=== PATIENT | female | born 1985 | race African-American/Black ===

== ENCOUNTER 2021-01-03 08:41 | Outpatient (CLI) | payer BC, SELFPAY ==
--- NOTE | ~2021-01-03 | MM_ITS ---
EXAMINATION: MM diagnostic shane RT w padmini HISTORY: Palpable right breast abnormality. TECHNIQUE: Additional 3-D tomosynthesis images of the right breast were performed and synthetic 2-D i mages were generated. CAD analysis was submitted and interpreted. COMPARISON: No prior studies for comparison. BREAST PARENCHYMAL COMPOSITION: BREAST PARENCHYMAL COMPOSITION: There are scattered areas of fibroglandular density. FINDINGS: There are no suspicious masses, calcifications or architectural distortion to suggest malig ryley. Specifically in the area of palpable concern there is no definite mass. There are benign appea ring axillary lymph nodes. IMPRESSION: 1. No mammographic evidence for malignancy in the right breast. No 2. Recommend targeted right breast ultrasound for complete evaluation of palpable breast abnormality. BI-RADS Category 0: Incomplete: Needs additional imaging evaluation. Reviewed, dictated and finalized at location A. IMPRESSION: 1. No mammographic evidence for malignancy in the right breast. No 2. Recommend targeted right breast ultrasound for complete evaluation of palpab le breast abnormality. BI-RADS Category 0: Incomplete: Needs additional imaging evaluation.
== END 2021-01-03 08:42 | disposition home or self-care (01) ==
PROVIDERS: PCP Internal Medicine; Visit Provider Student in an Organized Health Care Education/Training Program
DX: N64.59 Other signs and symptoms in breast (principal); R92.8 Other abnormal and inconclusive findings on diagnostic imaging of breast
CPT/HCPCS: 77061; 77065; G0279

== ENCOUNTER 2021-01-16 09:52 | Outpatient (CLI) | payer BC, SELFPAY ==
--- NOTE | ~2021-01-16 | US_ITS ---
US breast RT limited 01/16/2021 10:26 Indication: Skin changes overlying the right axilla. Procedure: High-resolution ultrasound of the right axilla Comparison: Mammogram dated 01/03/2021 Findings: There is normal heterogeneous echotexture in the area of skin change in the right axilla wi thout discrete mass. There is a 1 cm lymph node corresponding to the lymph node seen on mammogram in the nearby axilla. No sonographic evidence for malignancy. Impression: 1: No sonographic evidence for malignancy in the right axilla. Routine yearly screening mammogram and regular clinical breast examination are recommended. BI-RADS CATEGORY 2 - BENIGN FINDINGS Reviewed, dictated and finalized at location A. Impression: 1: No sonographic evidence for malignancy in the right axilla. Routine yearly screening mammogram and regular clinical breast examination are recommended. BI-RADS CATEGORY 2 - BENIGN FINDINGS
== END 2021-01-16 09:53 | disposition home or self-care (01) ==
LOC: ANHIMG 09:54
PROVIDERS: PCP Internal Medicine; Visit Provider Student in an Organized Health Care Education/Training Program
DX: N64.89 Other specified disorders of breast (principal)
CPT/HCPCS: 76642

== ENCOUNTER 2021-03-05 15:41 | Outpatient (CLI) | payer BC, SELFPAY ==
--- NOTE | ~2021-03-05 | US_ITS ---
EXAMINATION: US soft tissue UE RT EXAM DATE: 03/05/2021 16:24 INDICATION: R22.9 - Localized swelling, mass and lump, unspecified lump. TECHNIQUE: Multiple grayscale and Doppler images of the symptomatic right upper extremity region were obtained (by a technologist who performed the scan) and subsequently reviewed. There is no prior st udy for comparison. FINDINGS: Scanning in location of patient's right arm lump demonstrated a mobile region isoechoic to fat, possi zoe an unencapsulated lipoma measuring about 1 x 2 cm. The underlying musculature and overlying skin are unremarkable. IMPRESSION: Possible unencapsulated lipoma. Reviewed, dictated and finalized at location A.
== END 2021-03-05 15:42 | disposition home or self-care (01) ==
PROVIDERS: PCP Internal Medicine; Visit Provider Nurse Practitioner
DX: R22.9 Localized swelling, mass and lump, unspecified (principal)
CPT/HCPCS: 76882

== ENCOUNTER 2021-06-04 11:52 | Emergency (ER) | payer BC, SELFPAY ==
--- NOTE | 2021-06-04 11:56 | ED.LOWEXIN ---
HPI - Extremity Injury (Lower) General Chief Complaint: Extremity Problem,Nontraumatic Stated Complaint: lt lower leg pain Time Seen by Provider: 06/04/21 11:56 Source: patient and RN notes reviewed History of Present Illness HPI Narrative: Patient is a 35-year-old female who presents the urgent care with complaints of left lower leg pain in the frankel area. 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 Patient states that she has made a point to get up and walk around several times throughout the day to help with the restless legs. Patient states that she is also seeing a chiropractor recently and notes that her right hip is out of alignment . Patient states that she suffers from left sciatica as well as chronic low back pain. Patient states that the left frankel the pain is a new symptom that is started approximately 1 week ago and worsened with a little bit of tingling and discomfort in the last 24 hours. Patient denies of any shortness of breath or chest pain. Denies of any history of DVT. No other acute complaints. No acute distress noted. Patient aware of the plan of care. Some parts of this dictation were generated by voice recognition software and may contain typographical and/or grammatical inaccuracies. Related Data Home Medications Medication Instructions Recorded Confirmed cetirizine 10 mg tablet 10 mg PO DAILY 06/08/20 fluticasone propionate 50 1 spray INTRANASAL DAILY 06/08/20 mcg/actuation nasal spray,suspension Allergies Allergy/AdvReac Type Severity Reaction Status Date / Time No Known Allergies Allergy Verified 06/08/20 11:39 Review of Systems Review of Systems: CONSTITUTIONAL: Denies fever, chills, or sweats. EYES: Denies visual changes, redness, or discharge. ENT: Denies rhinorrhea, congestion, sore throat, or otalgia. CARDIOVASCULAR: Denies chest pain, palpitations, or edema. RESPIRATORY: Denies cough or dyspnea. GASTROINTESTINAL: Denies abdominal pain, nausea, vomiting, or diarrhea. GENITOURINARY: Denies dysuria or hematuria. SKIN: Denies rash or itching. MUSCULOSKELETAL: Reports of left lower leg/frankel pains NEUROLOGIC: Denies headache, numbness, or weakness. All other systems reviewed are negative, except as documented in HPI. [facility] Family History Family History Grandparent Diabetes mellitus Family history of congestive heart failure Mother Family history of arthritis Father Family history of kidney disease Social History Social History Smoking status: Never smoker Alcohol intake: current Comments At the time of my signature, I reviewed and agree with the nursing past medical, surgical, social, and family history. There is no relevant family history pertinent to the patient complaint. Exam Narrative: GENERAL: This is a well-nourished, well-developed patient, in no apparent distress. HEAD: normocephalic, atraumatic. EYES: PERRL. Sclera clear/white. Vision is grossly intact. EARS: External ears normal NOSE: External nose normal with no obvious nasal discharge, nares without redness, no rhinorrhea. THROAT: Mucous membranes moist NECK: Neck supple CARDIOVASCULAR: Regular rate and rhythm without murmurs, gallops, or rubs. RESPIRATORY: Clear to auscultation. Breath sounds equal bilaterally. No wheezes, rales, or rhonchi. SKIN: warm, intact with no suspicious lesions or rash, good texture and turgor. NEURO: awake, alert, and oriented to person, place and time. There were no obvious focal neurologic abnormalities. EXTREMITIES: Positive strong left pedal pulse with capillary refill less than 2 seconds. Negative left Homans' sign. No obvious deformity, erythema, edema or ecchymosis noted to the left lower extremity. Range of motion to left lower extremity within normal limits. Course Vital Signs Vital signs:
[2021-06-04 11:58] VITALS: BP 154/91; PULSE 68; RESP 16; TEMP 36.6; O2SAT 98
== END 2021-06-04 12:23 | disposition home or self-care (01) ==
PROVIDERS: Emergency Provider Nurse Practitioner Family; PCP Internal Medicine
DX: M79.662 Pain in left lower leg (principal)
CPT/HCPCS: 99213; G0463

== ENCOUNTER 2021-08-20 13:53 | Outpatient (CLI) | payer BC, SELFPAY ==
--- NOTE | ~2021-08-20 | MMUS_ITS ---
EXAMINATION: MM diagnostic shane BI w padmini, US breast LT limited HISTORY: Palpable lump in the upper outer quadrant of the left breast TECHNIQUE: Craniocaudal, mediolateral, and mediolateral oblique 3-D tomosynthesis images of the breas ts were performed and synthetic 2-D images were generated. CAD analysis was submitted and interpreted . High resolution limited left breast ultrasound was performed. COMPARISON: 01/03/2021 BREAST PARENCHYMAL COMPOSITION: The breasts are almost entirely fatty. FINDINGS: MAMMOGRAPHIC FINDINGS: There is no evidence of suspicious mass, calcification, or architectural distortion in either breast to suggest malignancy. There has been no suspicious interval change. No suspicious mammographic wendy elate is identified for the reported palpable abnormality of the left breast. ULTRASOUND: There are normal-appearing lymph nodes in the left axilla. No suspicious cystic or solid mass is iden tified correlate with reported palpable abnormality of concern. IMPRESSION: 1. No specific mammographic or sonographic correlate is identified for the reported palpable abnormal ity of concern. Further evaluation at this time should be based on clinical assessment. Continued fol low-up physical examination is recommended. 2. Recommend routine screening mammography beginning at age 40. BI-RADS Category 1: Negative Reviewed, dictated and finalized at location A. [facility] CONS[employer] IMPRESSION: 1. No specific mammographic or sonographic correlate is identified for the repo rted palpable abnormality of concern. Further evaluation at this time should be based on clinical assessment. Continued follow-up physical examination is [place] mmended. 2. Recommend routine screening mammography beginning at age 40. BI-RADS Category 1: Negative
== END 2021-08-20 13:54 | disposition home or self-care (01) ==
LOC: ANHIMG 13:58
PROVIDERS: PCP Internal Medicine; Visit Provider Obstetrics & Gynecology
DX: R92.8 Other abnormal and inconclusive findings on diagnostic imaging of breast (principal)
CPT/HCPCS: 76642; 77062; 77066; G0279

== ENCOUNTER 2021-11-05 17:21 | Emergency (ER) | payer BC, SELFPAY ==
[2021-11-05 17:24] VITALS: BP 151/109; PULSE 93; RESP 16; TEMP 36.6; O2SAT 98
[2021-11-05 17:31] VITALS: BP 148/103
--- NOTE | 2021-11-05 17:56 | ED.URI ---
HPI - URI/Sore Throat General Chief Complaint: Upper Respiratory Infection Stated Complaint: COUGH/SOB/FEVER/BODY ACHES Time Seen by Provider: 11/05/21 17:45 Source: patient Mode of arrival: ambulatory Limitations: no limitations History of Present Illness HPI Narrative: Ms. Guzman is a 35-year-old female patient presenting to the clinic today with complaints of cough, shortness of breath, fever, body aches, and sore throat x1 to 2 days. Feels as though her throat is tight. Has nonproductive cough. No known exposure to anyone with Covid or influenza. She does recycle worker. She reports a personal history of chronic allergic rhinitis/postnasal drip. She has been taking Flonase and Zyrtec for this but this does not seem to be helping. MD elicited complaint: fever, cough, sore throat, rhinorrhea, nasal congestion, sinus pain and other (Body aches) Related Data Allergies Allergy/AdvReac Type Severity Reaction Status Date / Time No Known Allergies Allergy Verified 06/08/20 11:39 Review of Systems Review of Systems: Pertinent positives per HPI. Patient denies any rash, headache, visual changes, dizziness, chest pain, palpitations, nausea, vomiting, diarrhea, constipation, abdominal pain, or any urinary issues. [facility] Past Medical History Medical History Depression with anxiety Family History Family History Grandparent Diabetes mellitus Family history of congestive heart failure Mother Family history of arthritis Father Family history of kidney disease Social History Social History Smoking status: Never smoker Alcohol intake: current Alcohol use details: less than 1 drink a week Substance use type: marijuana Other substance usage details: occasionally Comments At the time of my signature, I reviewed and agree with the nursing past medical, surgical, social, and family history. There is no relevant family history pertinent to the patient complaint. Exam Narrative: General: Well-developed, morbidly obese, in no apparent distress Head: Normocephalic, atraumatic Eyes: Pupils equally round and reactive to light bilaterally, EOM intact, sclera and conjunctive clear, no discharge, lids normal Ears: TMs intact and clear, ear canals clear, no drainage, grossly hearing normal. Nose: Nares patent, no discharge, moderate inflammation to the anterior and posterior turbinates, sinus tenderness over the maxillary and frontal sinuses Mouth: Oral pharynx without lesions or masses, good dentition, MMM. Postnasal drip Neck: Supple, trachea midline, no enlargement of anterior or posterior cervical nodes, no thyroid masses or goiter palpable. Cardio: Regular rate and rhythm, s1 and s2 normal, no murmur appreciated. Resp: Clear to auscultation bilaterally, no rhonchi, rales, wheezing or rubs Course Course Emergency Course: Portions of this record may have been created with voice recognition software. Level of Care: Express Care Visit Vital Signs Vital signs: Vital Signs Temperature 36.6 C 11/05/21 17:24 Pulse Rate 93 11/05/21 17:24 Respiratory Rate 16 11/05/21 17:24 Blood Pressure 151/109 H 11/05/21 17:24 Pulse Oximetry 98 11/05/21 17:24 Temperature 36.6 C 11/05/21 17:24 Pulse Rate 93 11/05/21 17:24 Respiratory Rate 16 11/05/21 17:24 Blood Pressure 148/103 H 11/05/21 17:31 Pulse Oximetry 98 11/05/21 17:24 Vital signs reviewed MDM - URI/Sore Throat MDM Narrative Medical decision making narrative: At the time of visit patient patient appears mildly ill sitting in exam chair. No fever in the clinic today. Blood pressures are elevated however we do not have a correct size blood pressure cuff to appropriately check her blood pressure. Discussed high blood pressure with patient and she will follow u
== END 2021-11-05 18:13 | disposition home or self-care (01) ==
PROVIDERS: Emergency Provider Nurse Practitioner Family; PCP Internal Medicine
DX: J06.9 Acute upper respiratory infection, unspecified (principal); R09.82 Postnasal drip; Z20.822 Contact with and (suspected) exposure to COVID-19
CPT/HCPCS: 87081; 87426; 87804; 87880; 99213; C9803; G0463

== ENCOUNTER 2022-10-15 08:52 | Emergency (ER) | payer BC, SELFPAY ==
[2022-10-15 09:05] VITALS: BP 164/104; PULSE 77; RESP 16; TEMP 36.2; O2SAT 100
[2022-10-15 09:10] VITALS: BP 151/73; PULSE 75
--- NOTE | 2022-10-15 09:10 | ED.URI ---
HPI - URI/Sore Throat General Chief Complaint: Upper Respiratory Infection Stated Complaint: SORE THROAT/CONGETION/STREP EXPOSURE Time Seen by Provider: 10/15/22 09:10 Source: patient Mode of arrival: ambulatory Limitations: no limitations History of Present Illness HPI Narrative: patient is a 36-year-old female presenting with congestion, sore throat, and cough since yesterday. Daughter was diagnosed with strep. Patient has been taking TheraFlu with mild relief. denies any fever. Related Data Allergies Allergy/AdvReac Type Severity Reaction Status Date / Time No Known Allergies Allergy Verified 10/15/22 09:03 Review of Systems Review of Systems: CONSTITUTIONAL: Denies malaise, chills, sweats, or fever.? EYES: Denies visual changes, redness, or discharge.? ENT: Reports rhinorrhea, congestion, sinus pain, and sore throat.? CARDIOVASCULAR: Denies chest pain, palpitations, or edema.? RESPIRATORY: Reports cough.? Denies dyspnea.? GASTROINTESTINAL: Denies abdominal pain, nausea, vomiting, diarrhea? SKIN: Denies rash or itching.? MUSCULOSKELETAL: Denies myalgia.? NEUROLOGIC: Denies headache All systems reviewed & are unremarkable except as noted in HPI and below PMFSH Past Medical History Medical History Depression with anxiety Family History Family History Grandparent Diabetes mellitus Family history of congestive heart failure Mother Family history of arthritis Father Family history of kidney disease Social History Social History Smoking status: Never smoker Alcohol intake: current Alcohol use details: less than 1 drink a week Substance use type: marijuana Other substance usage details: occasionally Comments At time of signature, agree with nursing past medical, surgical, social and family history. There is no relevant family history pertinent to the presenting complaint? Exam Narrative: GENERAL: Well-appearing, well-nourished, and in no acute distress.? HEAD: Normocephalic, atraumatic.? EYES: PERRLA, conjunctivae clear, and EOMI. No nystagmus.? ENT: Nares clear, turbinates pink, no rhinorrhea or epistaxis. Mucous membranes moist. TM pearly garcia with sharp light reflex bilaterally; no tragal tenderness. Oropharynx with erythema, without lesions. Tonsils 1+ enlarged and without exudate.? NECK: Supple. No lymphadenopathy. CHEST: No respiratory distress. Clear to auscultation.? No bony deformities, no asymmetry. Speaks in full sentences.? HEART: Regular rate and rhythm. No murmur heard. ? ABDOMEN: Soft, nontender, nondistended EXTREMITIES: Normal range of motion. No edema. ? SKIN: Warm, dry, no rash.? NEURO: Alert and oriented x3. No focal deficits. PSYCH: Normal mood and affect? Course Course Emergency Course: Patient is aware of diagnosis, understands and agrees to treatment plan.? Anticipatory guidance given.? Patient agrees to follow-up as directed and is aware of reasons to seek care at the emergency department.? Portions of this record may have been created with voice recognition software? Level of Care: Express Care Visit Vital Signs Vital signs: Vital Signs Temperature 36.2 C L 10/15/22 09:05 Pulse Rate 77 10/15/22 09:05 Respiratory Rate 16 10/15/22 09:05 Blood Pressure 164/104 H 10/15/22 09:05 Pulse Oximetry 100 10/15/22 09:05 Temperature 36.2 C L 10/15/22 09:05 Pulse Rate 77 10/15/22 09:05 Respiratory Rate 16 10/15/22 09:05 Blood Pressure 164/104 H 10/15/22 09:05 Pulse Oximetry 100 10/15/22 09:05 Reviewed MDM - URI/Sore Throat MDM Narrative Medical decision making narrative: Differential diagnosis considered: Workman virus, strep pharyngitis, allergic rhinitis, upper respiratory tract infection, sinusitis, rhinosinusitis, nasopharyngitis. viral pharyngitis, otitis media, otitis externa
== END 2022-10-15 09:37 | disposition home or self-care (01) ==
PROVIDERS: Emergency Provider Nurse Practitioner Family; PCP Internal Medicine
DX: J02.0 Streptococcal pharyngitis (principal)
CPT/HCPCS: 87880; 99213; G0463

== ENCOUNTER 2024-11-24 01:52 | Day surgery (SDC) | payer BC, SELFPAY ==
[2024-11-02 13:38] VITALS: BMI 48.1
[2024-11-15 14:37] VITALS: BMI 48.1
--- OUTSIDE RECORDS SUMMARY | 2024-11-24 01:54 | XMS_ITS | Clinical Summary ---
Author Organization [facility] [employer] Address [address] [place] [address] Care Team Providers Care Core Shaper Sides Name Role Phone Unavailable Primary Care Provider Unavailabl e Source Comments [facility],non-owned Affiliates and Associated Physician Practices is amultiple site organization consisting of ambulatory clinics and hospital sitesin [place], [place], [place] and [place]. This disclosure is being madepursuant to the Care Everywhere program and may not contain all information available regarding this patient. Last updated [email or web address] Allergies No known active allergies Medications * Be aware that medications may not be up to date on this document. Alwaysverify current medications with the patient. Medication Sig Dispensed Refills Start Date End Date Status Cetirizine HCl (ZYRTEC PO) Active Etonogestrel-Ethinyl Estradiol (NUVARING VA) Active benzonatate (TESSALON) 200 MG capsuleIndications:A cute non-recurrent frontal sinusitis Take 1 capsule by mouth 3 times daily as needed for Cough 30 capsule 07/28/2018 Active fluticasone propionate (FLONASE) 50 MCG/ACT nasal sprayIndications:Acu te non-recurrent frontal sinusitis [place] 2 sprays into each nostril once daily 1 bottles 07/28/2018 Active Active Problems Patient Care Coordination No te Formatting of this note migh t be different from the original. 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 Merseline tape at 12 o'clock. Morbid obesity with BMI of 40.0-44.9, adult 06/17 Overview (08/23/2015): Early GCT 92 Monoamniotic and monochorion ic twin gestation in third trimester 07/01/2015 Overview (10/09/2015): Previously MonoDi twins. S/p laser ablation at 25 weeks for TTTS stage 3. Only 1 amnion seen at 30 weeks. Twin to twin transfusion in second trimester Overview (10/09/2015): S/p laser ablation at 25 weeks for stage 3 TTTS IUGR (intrauterine growth re striction) affecting care of mother Resolved Problems Problem Noted Date Diagnosed Date Resolved Date abnormality in pregnan cy- Twin to Twin Transfusion Syndrome 08/30/2015 10/22/2015 Overview (10/09/2015): Images from the original note were not included. HALF-WAY PATIENT--PLEASE CALL [phone] IF TRIAGED OR ADMITTED Care Provider: Dr. 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 Iatrogenic Monochorionic Monoamniotic twins as of 10/09/15. care needed at : Routine Planned care after delivery: Normal care pending delivery Box Lidder: Planned surveillance: Selective fetoscopic laser photocoagulation therapy 08/31/15; post-operative weekly ultrasounds until delivery; inpatient continuous monitoring as of 10/09/15 due to recent Stephanie status. Planned delivery location: [facility] Planned GA at delivery: - hx Planned mode of delivery: Placenta Instructions: Requested for studies by the [place] [facility]. Please see included instructions for handling and shipping of the placenta to [facility] to evaluate persistence of shared placental anastomoses. Autopsy indicated: Not anticipated Genetics note: 46,XX with no evidence for structural or numerical abnormalities in all cells examined Grinder Set Up Operator External Concerns: 09/03/15- There are no social service concerns identified at this time This care plan is based on evaluation and is subject to change based on assessment. Please see Images or Cardiac under Chart Review for US/ ECHO/ MRI reports. Short cervical length during in second trimester 09/01/2015 Immunizations Name Administration Dates Next Due HEP A VACCINE, ADULT 06/25/2009 HEP B VACCINE ADOL/ADULT 2 DOSE 06/25/2009 INFLUENZA VACCINE 06/25/2009 INFLUENZA VACCINE, QUADR. (F LUZONE; FLULAVAL; FLUARIX; AFLURIA QUADRIVALENT; 6MO+), 0.5 ML (IIV4) 06/22/2018 MMR 10/16/2015 Rho D Immune Globulin 10/13/2015,08/31/2015 Family History Medical History Relation Name Comments Arthritis - Osteo Mother Cancer - Lung Paternal Grandmother Asthma Neg Hx Autoimmune Disease Neg Hx Bipolar Disorder Neg Hx Cancer - Breast Neg Hx Cancer - Colon Neg Hx Cancer - Other Neg Hx Cancer - Ovarian Neg Hx Cancer - Pancreatic Neg Hx Cancer - Prostate Neg Hx Depression Neg Hx Eczema Neg Hx Hypertension Neg Hx Migraine Neg Hx Osteoporosis Neg Hx Seizures Neg Hx Sudd. <30 Neg Hx Thyroid Disease Neg Hx Ulcerative Colitis Neg Hx Relation Name Status Comments Father Alive Mother Alive Paternal Grandmother Social History Tobacco Use Types Packs/Day Years Used Date Smoking Tobacco: Never Smokeless Tobacco: Never Tobacco Cessation:Counseling Given: No Alcohol Use Standard Drinks/Week Comments No 0 (1 standard drink = 0.6 oz pur e alcohol) Sex and Gender Information Value Date Recorded Sex Assigned at Not on file Gender Identity Not on file Sexual Orientation Not on file Last Filed Vital Signs Vital Sign Reading Time Taken Comments Blood Pressure 124/78 07/28/2018 5:12 PM SPLITTING MACHINE TENDER Pulse 98 07/28/2018 5:12 PM SPLITTING MACHINE TENDER Temperature 37.2 C (98.9 F) 07/28/2018 5:12 PM SPLITTING MACHINE TENDER Respiratory Rate 16 07/28/2018 5:12 PM SPLITTING MACHINE TENDER Oxygen Saturation 97% 07/28/2018 5:12 PM SPLITTING MACHINE TENDER Inhaled Oxygen Concentration 21% 10/13/2015 8 :25 AM SPLITTING MACHINE TENDER Weight 153.3 kg (338 lb) 07/28/2018 5:12 PM SPLITTING MACHINE TENDER Height 180.3 cm (5' 11 ) 07/28/2018 5:12 PM SPLITTING MACHINE TENDER Body Mass Index 47.14 07/28/2018 5:12 PM SPLITTING MACHINE TENDER Plan of Treatment Health Maintenance Due Date Last Done Comments HIV SCREENING 12/02/1999 HEPATITIS C SCREENING 11/27/2002 DTAP/TDAP/TD VACCINES (1 - Tdap) 12/02/2003 HEPATITIS B VACCINE (2 of 3 - 19+ 3-dose series) 07/23/2009 06/25/2009 COVID-19 VACCINE (1 - 2023-2 5 season) 2024 DEPRESSION SCREENING 08/17/2024 INFLUENZA VACCINE (Season Ended) 2025 06/22/2018, 06/25/2009 ZOSTER VACCINE (1 of 2) 2034 HIB VACCINE Aged Out No longer eligi ble based on patient's age to complete this topic HPV VACCINE Aged Out No longer eligi ble based on patient's age to complete this topic MENINGOCOCCAL (Group B) VACCINE SHARED DECISION-MAKING Aged Out No longer eligible based on patient's age to complete this topic MENINGOCOCCAL GROUPS A/C/Y/W VACCINE Aged Out No longer eligible b ased on patient's age to complete this topic PNEUMOCOCCAL VACCINE Aged Out No long er eligible based on patient's age to complete this topic Advance Directives * Full Code (Latest Code Status on File) Date Activated Date Inactivated Comments 10/12/2015 5:49 PM 10/16/2015 5:27 PM * Full Code Date Activated Date Inactivated Comments 10/09/2015 10:23 PM 10/12/2015 5:49 PM * Full Code Date Activated Date Inactivated Comments 08/30/2015 6:49 PM 09/01/2015 6:26 PM * Full Code Date Activated Date Inactivated Comments 08/03/2015 1:17 AM 08/03/2015 5:39 PM
--- OUTSIDE RECORDS SUMMARY | 2024-11-24 01:54 | XMS_ITS | Clinical Summary ---
Author Organization [facility] Address [address] [place] [id number] Care Team Providers Care Service Desk Agent Name Role Phone Lester Griggs MD Primary Care Provider [phone] Immunizations Name Administration Dates Next Due Hepatitis A (Havrix 1440 [address]U) 06/25/2009 Hepatitis B (Generic: Adult) 06/25/2009 Influenza (Generic) 06/01/2013,06/25/2009 Influenza Adult (Generic) 06/22/2018 MMR (MMRII) 10/16/2015 Tdap (Generic) 05/09/2015 Social History Tobacco Use Types Packs/Day Years Used Date Smoking Tobacco: Never Assessed Comments Unknown Sex and Gender Information Value Date Recorded Sex Assigned at Not on file Legal Sex Female 8:27 PM CDT Gender Identity Not on file Sexual Orientation Not on file Plan of Treatment Health Maintenance Due Date Last Done Comments Cervical Cancer Screening Pa p Smear (Age 30 to 64) Every 3 Years 1984 Annual Physical 12/02/1987 Hepatitis C 2002 Hepatitis B Vaccines (2 of 3 - 19+ 3-dose series) 07/23/2009 06/25/2009 Cervical Cancer Screening Pa p with HPV Testing (Age 30 to 64) Every 5 Years 2014 Cervical Cancer Screening wi th HPV 2014 COVID-19 Vaccine ( - 2023-2 5 season) 2024 04/01/2021, 03/02/2021 DTaP, Tdap and Td Vaccines ( 2 - Td or Tdap) 05/09/2025 05/09/2015 HPV Vaccines Aged Out No longer eligi ble based on patient's age to complete this topic Meningococcal B Vaccine Aged Out No l onger eligible based on patient's age to complete this topic Meningococcal Vaccine Aged Out No octavio neeraj eligible based on patient's age to complete this topic Pneumococcal Vaccine: Pediatrics (0 to 5 Years) and At-Risk Patients (6 to 64 Years) Aged Out No longer eligible b ased on patient's age to complete this topic RSV Immunizations Under 20 Months Aged Out No longer eligible b ased on patient's age to complete this topic Insurance Care Teams Service Desk Agent Relationship Specialty Start Date End Date Lester Griggs MD PCP - General 12/16/16
--- OUTSIDE RECORDS SUMMARY | 2024-11-24 01:54 | XMS_ITS | Data Portability ---
Author Organization [facility] ANGUSClaus [place] Michael Address [address] [place] [address] Care Team Providers Care Counterperson Name Role Phone CHRISJose Manuel BALJEET Primary Care Provider Assessment Encounter Date Assessment Date Assessment LastModified by Organization Details LastModified Time 05/22/2015 05/22/2015 29yo @ 10w4d by LMP: 1. Supervision of : - Dating: LMP; US ordered today - PNL's ordered - pap not indicated - no h/o abnormals; last normal 03/2014 - Compazine for nausea 2. Obesity: - consider early GCT 3. RTC 4 weeks [email or web address] Not available 05/22/2015 15:55:06 06/27/2015 06/27/2015 29yo @ 15w5d: 1. Supervision of : - Dating: L/10w US - A-/I/-/-, HIV NR; needs Rhogam 28w - pap not indicated (last normal 2013) - considering BTL for BC - genetics declined today 2. Griggs/Griggs twins (?): - Level 2 US scheduled 06/29 @ [facility] 3. Obesity: - consider early GCT next visit 4. RTC 4 weeks unless scan on Thursday confirms Griggs/mono twins - then ARNEL to [facility] [email or web address] Not available 06/27/2015 11:43:25 Plan of Treatment Reminders Order Date Submit Date Provider Last Modified By Organization Details Last Modified Time Details Appointments None recorded. Lab urinalysis , dipstick 2014 015 [email or web address] 1 In-Office Order, Internal Use Only DO Not Attach Compendium DO Not Attach Compendium, Do Not Delete/merge, [id number] 5 11:44:06 test, urine 2014 015 [email or web address] 1 In-Office Order, Internal Use Only DO Not Attach Compendium DO Not Attach Compendium, Do Not Delete/merge, [id number] 15:55:06 HIV (1+O+2) Ab, serum 2014 [facility], [address] [facility], [address], [place], [address], 14:58:29 varicella- zoster igg Ab screen, serum 2014 ASH[facility], [address] [place], [place] [address]ne[address], [address], [place], [address], 15:03:03 RPR (rapid plasma reagin), serum 2014 ASHISH [facility], [address] [place] [address], [address], [place], [address], 15:03:49 HBsAg (hepatitis B surface Ag), EIA, serum 2014 015 [facility], [address] [facility], [address], [place], [address], 14:54:38 abo group + rh type, blood 2014 [email or web address] [facility], [address] [place] [address], [address], [place], [address], 15:41:40 rubella igg Ab screen, serum 2014 015 [facility], [address] [facility], [address], [place], [address], 10:40:18 antibody screen, serum or plasma 2014 015 [email or web address] [facility], [address], [address], [place], [address], 15:41:41 CBC w/ auto diff 2014 015 SAHISH [facility], [address], [address], [place], [address], 04:15:39 drug screen, 5 drugs, urine 2014 ASHISH TODD, [address], [address], [place], [address], 03:12:47 hemoglobin (Hb) electropho resis, blood 2014 015 ASHISH TODD, [address], [address], [place], [address], 14:14:45 culture, urine 2014 015 ASHSIH TODD, [address], [address], [place], [address], 05:30:17 CT + NG DNA, PCR, unspecifie d specimen 2014 015 ASHISH TODD, [address], [address], [place], [address], 16:09:49 cf (cystic fibrosis) profile 2014 015 ASHISH TODD, [address], [address], [place], [address], 14:45:02 Referral None recorded. Procedures None recorded. Surgeries None recorded. Imaging ultrasound , survey, OB maternal eval - FULL BLADDER, NO SMALL CHILDREN, CURRENT INSURANCE CARD, ARRIVE 15 MINUTES PRIOR TO YOUR APPOINTMEN T, TAKE THIS REFERRAL WITH YOU. HAVE A GREAT DAY, THANKS:-} 2014 015 ASHISH Not available 14:09:21 Medication Orders Compazine 10 mg tablet 2014 015 INTERFACE [id number], [address], [place], [id number], 5 15:56:17 Patient TargetsNo targets recorded. Patient Instructions Encounter Date Encounter Id Patient Instructions Last Modified By Organization Details Last Modified Time 05/09/2015 [id number] Pre-employment physical with Tdap. TB test done elsewhere. [email or web address] Not available 05/09/2015 14:19:21 Reason for Referral None Reported. Results Created Date Observation Date Name Description Value Unit Range Abnormal Flag Note LastModifiedBy Organization Detail LastModifiedTime 06/27/20 15 06/27/2015 urina lysis , dipst ick Leukocytes Negati ve Not Available In-Office Order Internal Use Only DO Not Attach Compendium DO Not Attach Compendium, Do Not Delete/merge, [id number] 06/27/2015 11:27:38 06/27/20 15 06/27/2015 urina lysis , dipst ick Nitrite negati ve Not Available In-Office Order Internal Use Only DO Not Attach Compendium DO Not Attach Compendium, Do Not Delete/merge, [id number] 06/27/2015 11:27:38 06/27/20 15 06/27/2015 urina lysis , dipst ick Urobilinogen 4 Not Available In-Of fice Order Internal Use Only DO Not Attach Compendium DO Not Attach Compendium, Do Not Delete/merge, [id number] 06/27/2015 11:27:38 06/27/20 15 06/27/2015 urina lysis , dipst ick Protein 30 Not Available In-Office Order Internal Use Only DO Not Attach Compendium DO Not Attach Compendium, Do Not Delete/merge, [id number] 06/27/2015 11:27:38 06/27/20 15 06/27/2015 urina lysis , dipst ick pH 6.0 Not Available In-Office Order Internal Use Only DO Not Attach Compendium DO Not Attach Compendium, Do Not Delete/merge, [id number] 06/27/2015 11:27:38 06/27/20 15 06/27/2015 urina lysis , dipst ick Blood Non-He molyze d: Trace Not Available In-Office Order Internal Use Only DO Not Attach Compendium DO Not Attach Compendium, Do Not Delete/merge, 06/27/2015 11:27:38 06/27/20 15 06/27/2015 urina lysis , dipst ick Specific Cohagen 1.025 Not Available In-Off ice Order Internal Use Only DO Not Attach Compendium DO Not Attach Compendium, Do Not Delete/merge, 06/27/2015 11:27:38 06/27/20 15 06/27/2015 urina lysis , dipst ick Ketone Large (80) Not Available In-Office Order Internal Use Only DO Not Attach Compendium DO Not Attach Compendium, Do Not Delete/merge, 06/27/2015 11:27:38 06/27/20 15 06/27/2015 urina lysis , dipst ick Bilirubin Small Not Available In-Offic e Order Internal Use Only DO Not Attach Compendium DO Not Attach Compendium, Do Not Delete/merge, 06/27/2015 11:27:38 06/27/20 15 06/27/2015 urina lysis , dipst ick Glucose Negati ve Not Available In-Office Order Internal Use Only DO Not Attach Compendium DO Not Attach Compendium, Do Not Delete/merge, 06/27/2015 11:27:38 06/27/20 15 06/27/2015 urina lysis , dipst ick Appearance Slight ly Cloudy Not Available In-Office Order Internal Use Only DO Not Attach Compendium DO Not Attach Compendium, Do Not Delete/merge, 06/27/2015 11:27:38 06/27/20 15 06/27/2015 urina lysis , dipst ick Color Yellow Not Available In-Office Order Internal Use Only DO Not Attach Compendium DO Not Attach Compendium, Do Not Delete/merge, 06/27/2015 11:27:38 05/22/20 15 05/22/2015 pregn liliana test, urine HCG positi ve Not Available In-Office Order Internal Use Only DO Not Attach Compendium DO Not Attach Compendium, Do Not Delete/merge, [id number] 05/22/2015 15:27:19 05/25/20 15 05/25/2015 ultra sound , surve y, OB mater nal eval No observ ation record ed. [address] (Radiology & Mammograms) [address] [place], [address], 06/27/2015 11:22:02 05/25/20 15 05/25/2015 ultra sound , surve y, OB mater nal eval No observ ation record ed. [address] [place], [address], 06/27/2015 11:22:02 05/25/20 15 05/25/2015 ultra sound , surve y, OB mater nal eval No observ ation record ed. [address] (Lab) [address] [place], [address], 06/27/2015 11:22:02 05/29/20 15 05/25/2015 ultra sound , surve y, OB mater nal eval No observ ation record ed. [address] (Rad) [address] [place], [address], 06/27/2015 11:22:02 07/02/20 15 06/29/2015 ultra sound , surve y, OB mater nal eval No observ ation record ed. [address] [address] , [place], [address], 07/02/2015 11:08:01 07/02/20 15 06/29/2015 ultra sound , surve y, OB mater nal eval No observ ation record ed. [address] [address] , [place], [address], 07/02/2015 11:08:02 07/18/20 15 07/16/2015 ultra sound , surve y, OB mater nal eval No observ ation record ed. [address] [facility] [place] [address] [place] [address], [place], [address], 07/19/2015 16:33:57 07/18/20 15 07/16/2015 imagi ng/di agnos tic resul t No observ ation record ed. [address] [facility] [place] [address] [place] [address], [place], [address], 07/19/2015 16:24:54 07/25/20 15 07/24/2015 ultra sound , surve y, OB mater nal eval No observ ation record ed. [address] [facility] [place] [address] [place] [address], [place], [address], 07/25/2015 10:26:00 08/13/20 15 08/13/2015 ultra sound , surve y, OB mater nal eval No observ ation record ed. [address] [facility] [place] [address] [place] [address], [place], [address], 08/13/2015 16:09:33 08/24/19 16 08/22/2015 ultra sound , surve y, OB mater nal eval No observ ation record ed. [address] [facility] [place] [address] [place] [address], [place], [address], 08/24/2015 16:23:13 08/30/19 16 08/29/2015 ultra sound , surve y, OB mater nal eval No observ ation record ed. [address] [facility] [place] [address] [place] [address], [place], [address], 08/30/2015 13:53:23 09/01/19 16 08/29/2015 ultra sound , surve y, OB mater nal eval No observ ation record ed. [facility] [address] [facility], [place], [address], 09/04/2015 13:18:05 09/03/19 16 09/03/2015 ultra sound , surve y, OB mater nal eval No observ ation record ed. [email or web address], [address], 09/04/2015 13:18:06 09/11/19 16 09/10/2015 imagi ng/di agnos tic resul t No observ ation record ed. [email or web address] Not Available 08/18 10:41:01 09/19/19 16 09/17/2015 ultra sound , surve y, OB mater nal eval No observ ation record ed. [email or web address] [facility] Care [address], [address], 09/24/2015 11:24:07 09/24/19 16 09/24/2015 ultra sound , surve y, OB mater nal eval No observ ation record ed. [email or web address] Not Available 04/2016 10:22:30 09/24/19 16 09/24/2015 imagi ng/di agnos tic resul t No observ ation record ed. [email or web address], [address], 09/24/2015 14:09:18 10/10/19 16 10/09/2015 ultra sound , surve y, OB mater nal eval No observ ation record ed. [email or web address] Not Available 09/18 14:31:15 10/13/19 16 08/31/2015 ultra sound , surve y, OB mater nal eval No observ ation record ed. [email or web address] [facility] [address], [place], [address], 10/15/2015 10:22:41 10/16/19 16 08/02/2015 ultra sound , surve y, OB mater nal eval No observ ation record ed. [email or web address] Not Available 09/2015 10:15:06 Result Notes None recorded. 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 659093349 Completed TTTS noted on 08/29/15 Jose [place] [facility] 6 12:09:55 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 309829673 Active TTTS noted on 08/29/15 [place] [facility] 6 12:09:55 RhD negative 893859057 Completed [place] [facility] 12:09:55 RhD negative 022423781 Active [place] [facility] 12:09:55 Rubella non-immu ne 602494941 Completed [place] [facility] 12:09:55 Nausea present 518649514 Active Grace Guerra MD Attn: Joshua gordon,[address] [place], [address] [facility] [place] - [facility] 10:21:55 Nausea present 265879243 Completed Grace Guerra MD Attn: Joshua gordon,[address] [place], [address], [facility] - [facility] 6 10:21:55 Short cervical length in pregnanc y 030004583 Active 1.8cm; s/p inpatient stay at [facility]; now has pessary and on vag progester one Grace Guerra MD Attn: Joshua g,[address] [place], [address], [facility] - [facility] 6 10:21:55 Short cervical length in pregnanc y 046644570 Completed 1.8cm; s/p inpatient stay at [facility]; now has pessary and on vag progester one Grace Guerra MD Attn: Monicamax g,[address] [place], [address], [facility] - [facility] 6 10:21:55 Problem Notes None recorded. Procedures Surgical History Date Name Laterality Status Provider Name and Address Organization Details Recorded Time Dilation and Curettage completed Grace Guerra MD Attn: Accounting, [place], [address], [facility] - [facility] 05/22/2015 15:51:29 Imaging Results Imaging Date Name Status LastModified by Organiz ation Details LastModified Time 05/25/2015 ultrasound, survey, OB maternal eval completed [address] (Radiology & Mammograms) [address] [place], [address], 06/27/2015 11:22:02 05/25/2015 ultrasound, survey, OB maternal eval completed [address] [place], [address], 06/27/2015 11:22:02 05/25/2015 ultrasound, survey, OB maternal eval completed [address] (Lab) [address] [place], [address], 06/27/2015 11:22:02 05/25/2015 ultrasound, survey, OB maternal eval completed [address] (Rad) [address] [place], [address], 06/27/2015 11:22:02 06/29/2015 ultrasound, survey, OB maternal eval completed [facility] [address] [place] [address], [address], 07/02/2015 11:08:01 06/29/2015 ultrasound, survey, OB maternal eval completed [address] [facility] [place] [address] [place] [address], [address], 07/02/2015 11:08:02 07/16/2015 ultrasound, survey, OB maternal eval completed [address] [facility] [place] [address] [place] [address], [address], 07/19/2015 16:33:57 07/16/2015 imaging/diagn ostic result completed [address] [facility] [place] [address] [place] [address], [place], [address], 07/19/2015 16:24:54 07/24/2015 ultrasound, survey, OB maternal eval completed [address] [facility] [place] [address] [place] [address], [address], 07/25/2015 10:26:00 08/13/2015 ultrasound, survey, OB maternal eval completed [address] [facility] [address] [place] [address], [address], 08/13/2015 16:09:33 08/22/2015 ultrasound, survey, OB maternal eval completed [address] [facility] [address] [place] [address], [address], 08/24/2015 16:23:13 08/29/2015 ultrasound, survey, OB maternal eval completed [address] [address] , [place], [address], 08/30/2015 13:53:23 08/29/2015 ultrasound, survey, OB maternal eval completed [email or web address] [facility] [place] [address] , [place], [address], 09/04/2015 13:18:05 09/03/2015 ultrasound, survey, OB maternal eval completed [email or web address] [address], [address], 09/04/2015 13:18:06 09/10/2015 imaging/diagn ostic result completed [email or web address] Information not available 09/11/2015 10:41:01 09/17/2015 ultrasound, survey, OB maternal eval completed [email or web address] [address], [address], 09/24/2015 11:24:07 09/24/2015 ultrasound, survey, OB maternal eval completed [email or web address] Information not available 09/25/2015 10:22:30 09/24/2015 imaging/diagn ostic result completed [email or web address] [address], [address], 09/24/2015 14:09:18 10/09/2015 ultrasound, survey, OB maternal eval completed [email or web address] Information not available 10/11/2015 14:31:15 08/31/2015 ultrasound, survey, OB maternal eval completed [email or web address] [facility] [place] [address] , [place], [address], 10/15/2015 10:22:41 08/02/2015 ultrasound, survey, OB maternal eval completed [email or web address] Information not available 10/17/2015 10:15:06 Procedure Notes None recorded. Medical Equipment None Reported. Allergies No known drug allergies Medications Name Sig Start Date Stop Date Status Note LastModified by Organization Details LastModified Time prochlorper azine maleate 10 mg tablet Take 1 tablet every 6-8 hours by oral route. 2014 active Script called to [facility] in [facility]. as requested per patient Not Available Not Available Not Available Vitals Date Recorded Body weight Oxygen saturation Oxygen saturation in Arterial blood by Pulse oximetry Body height Body temperature Heart rate Body mass index (BMI) Systolic blood pressure Diastolic blood pressure Provider Name and Address Organization Details Last Updated DateTime 5 496223. 711 g 90 % 90 % 180.34 cm 98.7 [degF] 64 /min 41.8 kg/m2 112 mm[Hg] 70 mm[Hg] Sabrina Salcedoer [facility] 5 13:42:48 Date Recorded Body height Body mass index (BMI) Body weight Systolic blood pressure Diastolic blood pressure Provider Name and Address Organization Details Last Updated DateTime 05/22/2015 177.8 cm 42.4 kg/m2 829132.1 23076 g 114 mm[Hg] 70 mm[Hg] Nancy Rider MA [facility] 5 15:16:07 Date Recorded Body height Body mass index (BMI) Body weight Systolic blood pressure Diastolic blood pressure Provider Name and Address Organization Details Last Updated DateTime 06/27/2015 180.34 cm 40.4 kg/m2 206006.7 873 g 114 mm[Hg] 62 mm[Hg] Nancy Rider MA [facility] 5 11:19:22 Social History None recorded. Functional Status None recorded. Mental Status None recorded. Family History Nothing Reported. Medical History Condition Response Other Y Gynecological History Statement/Question Response Menses Monthly Y Abnormal Pap N Sexual Problems? N Current Control Method LMP Approximate Sexually Active? Y Obstetrics History GPAL:G 4 P 1 2 3 3 Type Value Multiple Births 1 Full Term 1 Induced 2 Spontaneous 1 Premature 2 Living 3 Ectopics 0 Total 4 Immunizations Vaccine Type Date Status Note Provider Nam e and Address Organization Details Recorded Time Tdap 05/09/2015 completed Not Available [facility] 09/03/2019 02:29:59 Past Encounters Encounter ID Performer Location Encounter Start Date Encounter Closed Date Diagnosis/Indication Diagnosis SNOMED-CT Code Diagnosis ICD10 Code Diagnosis Note [id number] Shahzad Crow PA-C [facility] [address] [place] [address] 05/09/2015 13:13:23 05/09/2015 14:22:57 Adult health examination 105154016 [id number] Jose Angel Walls [facility] (MINE ENGINEER) [address] [place] [address] 05/22/2015 14:53:46 05/22/2015 16:34:31 Normal 16109800 Z34.01 Obesity 658448101 E66.9 Nausea present 775750969 R11.0 [id number] Jose Angel Walls [facility] (MINE ENGINEER) [address] [place] [address] 06/27/2015 10:40:45 06/27/2015 14:38:36 Obesity 628149915 E66.9 Normal 3073677 2 Z34.82 Nausea present 385918888 R11.0 Health Concerns Section Related Observation LastModified by Organization Detai ls LastModified Time None Recorded Concern Status LastModified by Organization Details LastModified Time None Recorded Advance Directives Directive None Recorded Payers Encounter Date Sequence Insurance Name Policy Number Policy Schuler Covered Member ID Schuler Member ID Guarantor Name 05/09/2015 1 *SELF PAY* Sinai Guzman 05/22/2015 1 *SELF PAY* Sinai Guzman 06/27/2015 1 [place]MOVE TO HOLD) Christa Guzman [id number] Christa Guzman Notes Date Note Type Note Provider Name and Address Organization Details Recorded Time 05/09/2015 text/html Pre-employment physical with Tdap. TB test done elsewhere. Shahzad Crow PA-C Attn: Accounting,[address] [place], [address], [facility] 05/15/2015 17:15:37 OBGyn Episode Ob Episode Information Episode Created Date Number of Fetuses Patient Bloodtype Patient rh Status Prepregnancy Weight lbs Domestic Partner Domestic Partner Phone Father Name Astronomy Professor Status 05/22/20 15 2 A Negative CLOSED Fetus Data First Name Last Name Admitted to NICU Weight (g) Sex Living Outcome Pediatric Complications Fetus ID Race Codes Race Delivery Type IRENA MADAY ETT true 1133.98 F true Prematur e twin B: female; 2#11oz 46901 2058-01 Afric an Ameri can Primary SILAS NASSAR ETT true 1445.82 45 F true Prematur e 16140 2053-12 Black or Afric an Ameri can Problems Problem Notes Problem Name Start Date End Date Resolution Snomed Code Not e Rubella non-immune 653064469 Obesity 847605715 Normal 59801108 s/p eCS (abruption/NRFHT' s) 10/12/15 Monochorionic monoamniotic twin 137504042 TTTS noted on 08/29/15 RhD negative 548302484 Noel Calculation Initial Noel Date Initial Exam Date Initial Exam Provider Initial Ultrasound Date Last Menstrual Period Date Ultra Sound Weeks Gestation 12/14/2015 05/22/2015 [email or web address] 05/25/2015 03/09/2015 10 Eighteen To Twenty Week Noel Update Ultra Sound Date Fundal Height At Umbil Quickening Date Ultra Sound Latest Weeks Gestation Final Noel Confirmed By Final Noel Confirmed Date Final Noel Date Ultra Sound Latest Days Gestation 0 [email or web address] 05/25/2015 12/14/19 16 0 Pre- Flowsheet Flowsheet Date 05/22/2015 Bills Score Blood Edema Fundus Height Fundus Units Glucose Ketones Leukocytes Nitrite Labor Signs Protein Cervic Dilation Cervic Effacement Cervic Station none Type Weight in lbs Pre/Post Dialysis Refused 295.28536082790 BP Diastolic BP Location Tested BP Systolic BP Type 70 114 sitting Fetus Heart Rate Present Fetus Movement Comments 29yo @ 10w4d by LMP here to establish care. Usually receives care with Dr. Lyles in [place], but doesn't currently have insurance. Starting new job, so insurance should kick in in July, but needs care between now and then. No cramping/bleeding/lof. No FM yet. Flowsheet Date 06/27/2015 Bills Score Blood Edema Fundus Height Fundus Units Glucose Ketones Leukocytes Nitrite Labor Signs Protein Cervic Dilation Cervic Effacement Cervic Station Type Weight in lbs Pre/Post Dialysis Refused 290.7135597791 BP Diastolic BP Location Tested BP Systolic BP Type 62 114 sitting Fetus Heart Rate Present A 145/150 Present Fetus Movement A Yes Comments 29yo @ 15w5d here fo r f/u. Griggs/mono twins diagnosed on last US. Referred to [facility] for level 2 US this Thursday. If Griggs-mono will be transferred to [facility]. No bleeding since last visit. Nausea has improved. Starting to feel some movement. Menstrual History Last Menstrual Date Menses Monthly On Bcp Conception Prior Menses Frequency Hcg Plus Date Menarche Onset Age 0703/09/2015 Genetic Screening And Infection History Question Response Note Patient's Age Will Be 35 Years Or Older At Estim ated Date of Delivery false Thalassemia (Greek, Croatian, Mediterranean, Or Background): MCV < 80 false Neural Tube Defect (Meningomyelocele, Spina Bifi da, Or Anencephaly) false Congenital Heart Defect false Down Syndrome false Kyler-Sachs (eg, Adventism, Cajun, [place]ican-[place]) f alse Pascual Disease false Sickle Cell Disease Or Trait () false Hemophilia Or Other Blood Disorders false Muscular Dystrophy false Cystic Fibrosis false Daryl's Chorea false Mental Retardation/Autism false If Yes, Was Person Tested For Fragile X? false Other Inherited Genetic Or Chromosomal Disorder false Maternal Metabolic Disorder (eg, Type 1 Diabetes , PKU) false Patient Or Baby's Father Had A Child With Defects Not Listed Above false Recurrent Loss, Or A Stillbirth false Medications (including Suppl ements, Vitamins, Herbs, OTC Drugs), Illicit/Recreational Drugs, Alcohol false If Yes, Agent(s) And Strength/Dosage false Any Other Genetic History false Live With Someone With TB Or Exposed To TB false Patient Or Partner Has History Of Genital Herpes false Rash Or Viral Illness Since Last Menstrual Perio d false History Of STD, Gonorrhea, Chlamydia, HPV, Syphi lis false Other Infection History false Delivery Information Delivery Date Delivery Type Labor Anesthesia Weeks Gestation Incision Type Labor Labor Length Hrs Delivered By Post Complications Tubal Sterilization Discharge Date Comments 6 None General 31 Low Transvers e false Dr. Bonilla 11/18/2015 abruption /NRFHT's Discharge Information Feeding Method Contraceptive Method Maternal HG B and HCT Levels Combination
--- OUTSIDE RECORDS SUMMARY | 2024-11-24 01:54 | XMS_ITS | Patient Health Record ---
Author Organization [facility] [employer] [facility] Address [address] [facility] [address] [place] [address] Care Team Providers Care Foreman/Project Manager Name Role Phone Curt Chris Unavailable [phone] Migration, Provider Unavailable Unavailable Reason For Referral No Information Medications Medication SIG (Take, Route, Frequency, Duration) Notes Start Date End Date Status Escitalopram Oxalate 10 MG TAKE HALF A TAB BY MOUTH DAILY FOR 4 DAYS, THEN 1 TAB DAILY AFTER THAT for 90 Active ZyrTEC *Reorder from [employer] for eRx and Interaction Alerts* 12/03/2023 Active Vital Signs Height-cm 180.34 cm 12/03/2023 Weight-kg 156.85 kg 12/03/2023 Height 71.00 in 12/03/2023 Weight 345.80 lbs 12/03/2023 BMI 48.2 kg/m2 12/03/2023 Encounters Encounter Location Date Provider Diagnosis [facility] [employer] [facility] [address] [facility] [address] [place] [address] 12/02/2023 Provider Migration Major depressive disorder, recurrent, unspecified F33.9 [facility] [employer] [facility] [address] [facility] [address] [place] [address] 12/03/2023 [facility] [place]urt Major depressive disorder, recurrent, unspecified F33.9 [facility] [address] [facility] [address] [place] [address] 12/16/2023 Provider Migration [facility] [employer] [facility] [address] [place] [address] [place] [address] 12/30/2023 Provider Migration [facility] [address] [facility] [address] [place] [address] 12/31/2023 Provider Migration [facility] [address] [place] [address] [place] [address] 01/02/2024 Provider Migration [facility] [address] [facility] [address] [place] [address] 01/03/2024 Provider Migration Assessments Encounter Date Diagnosis (ICD Code) Assessment Notes Treatment Notes Treatment Clinical Notes Section Notes 12/03/2023 Major depressive disorder, recurrent, unspecified (ICD-10 - F33.9) 12/02/2023 Major depressive disorder, recurrent, unspecified (ICD-10 - F33.9) Plan Of Treatment No Information Insurance Providers Payer Name Payer Address Payer Phone Subscriber Number Group Number Insured Name Patient Relationship to Insured Coverage Start Date Coverage End Date [facility] [address] [place] [address] [id number] FRANK LOYD Self - patient is the insured Medical (General) History Surgical History Surgery Date(Month/Year) Any surgical history 09/05/2015
[2024-11-24 11:22] VITALS: BP 145/106; PULSE 85; RESP 18; TEMP 36.3; O2SAT 100; BMI 44.8
[2024-11-24] MEDS: LACTATED RINGERS 1,000 ML 150 ML IV CONT (11:59)
--- NOTE | 2024-11-24 12:16 | P.PNAN_ITS ---
Anes - Initial Pre Proc Eval Procedure: Operation Date: 11/24/24 12:30 Proposed Procedures p Colonoscopy - Donovan Monk MD Date/Time: 11/24/24 12:16 Surgeon: Donovan Monk MD Pre Op Diagnosis: Anemia, unspecified Patient Data Age: 38 Gender: F Height: 1.8 m Weight: 145.7 kg Last Vital Signs Temp 97.3 F L 11/24/24 11:22 Pulse 85 11/24/24 11:22 Resp 18 11/24/24 11:22 BP 145/106 H 11/24/24 11:22 Pulse Ox 100 11/24/24 11:22 O2 Del Method Room Air 11/24/24 11:22 Allergies Allergy/AdvReac Type Severity Reaction Status Date / Time No Known Allergies Allergy Verified 11/24/24 11:34 Home Medications ?Medication ?Instructions ?Recorded ?Confirmed ?Type cetirizine 10 mg tablet (Zyrtec) 10 mg PO DAILY PRN allergy symptoms 07/20/23 11/24/24 History escitalopram oxalate 10 mg tablet 10 mg PO DAILY 08/12/24 11/24/24 History (Lexapro) cholecalciferol (vitamin D3) 1,250 1,250 mcg PO WEEKLY #8 tabs 10/20/24 11/24/24 Rx mcg (50,000 unit) tablet phentermine 37.5 mg tablet 37.5 mg PO DAILY #30 tabs 10/20/24 11/02/24 Rx fluticasone propionate 50 2 spray intranasal DAILY PRN nasal 11/02/24 11/24/24 History mcg/actuation nasal congestion spray,suspension (24 Hour Allergy Relief) Patient hx anesthesia problems: none Family hx anesthesia problems: none Results Review: All pre-operative results and documents have been reviewed as part of the pre- operative evaluation. [facility] Past Medical History Medical History Depression with anxiety Family History Family History Grandparent Diabetes mellitus Family history of congestive heart failure Mother Family history of arthritis Father Family history of kidney disease Social History Social History Smoking status: Never smoker Alcohol intake: current Alcohol use details: 2 per month Substance use: current Substance use type: marijuana Other substance usage details: daily Last use: daily Lack of Transportation: No Lack of Food: Never True Current Housing: I Have Housing Concerned About Future Housing: No Difficulty Paying Gas/Electric Bills: No Difficulty Paying for Meds: No Currently Unemployed: No Education: Bachelor's Degree Difficulty w/ Childcare or Family Care: No Living arrangements: with family Spiritual care concerns: No Anes - Eval Final PreProcedure Day of Procedure 11/24/24 12:16 Patient weight: morbidly obese Heart: regular rate and rhythm Lungs: clear to auscultation Airway: Mallampati scale class II Neurological: alert and oriented Last oral intake: >/= 8 hours ASA classification: III Emergent: no Anesthetic plan: proceed Anesthesia type and monitoring: general GIVS and standard monitoring Results Review: All pre-operative results and documents have been reviewed as part of the pre- operative evaluation. Informed Consent: The patient's anesthetic plan and its attendant risks and benefits were discussed with the patient/family/POA. Questions were solicited and answers provided to the satisfaction of the patient/family/POA.
--- NOTE | 2024-11-24 12:16 | P.HP_ITS ---
H&P: HPI History of Present Illness Date/Time: 11/24/24 12:16 Chief Complaint: Iron deficiency Narrative: the patient has recently been found to have a low ferritin, in the presence of normal hemoglobin. She is being studied for a possible colonic sources of iron deficiency. She denies melena, hematochezia, or change in bowel habits. Review of Systems Review of Systems: All systems reviewed & are unremarkable except as noted in HPI and below PMFSH Past Medical History Medical History Depression with anxiety Family History Family History Grandparent Diabetes mellitus Family history of congestive heart failure Mother Family history of arthritis Father Family history of kidney disease Social History Social History Smoking status: Never smoker Alcohol intake: current Alcohol use details: 2 per month Substance use: current Substance use type: marijuana Other substance usage details: daily Last use: daily Lack of Transportation: No Lack of Food: Never True Current Housing: I Have Housing Concerned About Future Housing: No Difficulty Paying Gas/Electric Bills: No Difficulty Paying for Meds: No Currently Unemployed: No Education: Bachelor's Degree Difficulty w/ Childcare or Family Care: No Living arrangements: with family Spiritual care concerns: No Meds Home Medications and Allergies Home Medications ?Medication ?Instructions ?Recorded ?Confirmed ?Type cetirizine 10 mg tablet (Zyrtec) 10 mg PO DAILY PRN allergy symptoms 07/20/23 11/24/24 History escitalopram oxalate 10 mg tablet 10 mg PO DAILY 08/12/24 11/24/24 History (Lexapro) cholecalciferol (vitamin D3) 1,250 1,250 mcg PO WEEKLY #8 tabs 10/20/24 11/24/24 Rx mcg (50,000 unit) tablet phentermine 37.5 mg tablet 37.5 mg PO DAILY #30 tabs 10/20/24 11/02/24 Rx fluticasone propionate 50 2 spray intranasal DAILY PRN nasal 11/02/24 11/24/24 History mcg/actuation nasal congestion spray,suspension (24 Hour Allergy Relief) Allergies Allergy/AdvReac Type Severity Reaction Status Date / Time No Known Allergies Allergy Verified 11/24/24 11:34 Vital Signs Vital Signs - 24 hr 11/24/24 11:22 Temperature 97.3 F L Pulse Rate 85 Respiratory Rate 18 Blood Pressure 145/106 H Pulse Oximetry 100 Oxygen Delivery Room Air Exam Const: General: cooperative and healthy appearing Resp: Effort & Inspection: normal respiratory effort and able to speak in complete sentences Auscultation: clear to auscultation bilaterally Cardio: Rate: regular rate Rhythm: regular rhythm GI: Inspection: normal to inspection GI Palp: No No hepatosplenomegaly present Auscultation: normal bowel sounds Rectal Exam: deferred Skin: General skin exam: normal color Psych: Appearance: grossly normal Mental Status: mental status grossly normal Assessment and Plan Assessment and plan (1) Iron deficiency: Code(s): E61.1 - Iron deficiency Status: Acute Assessment and Plan: The patient is deemed a good candidate for the procedure. Consent signed. Will proceed.
[2024-11-24 13:06] VITALS: BP 131/68; PULSE 72; RESP 19; O2SAT 100
[2024-11-24 13:16] VITALS: BP 139/118; PULSE 72; RESP 19; O2SAT 100
[2024-11-24 13:26] VITALS: BP 158/75; PULSE 63; RESP 16; O2SAT 100
== END 2024-11-24 14:10 | disposition home or self-care (01) ==
PROVIDERS: PCP Internal Medicine; Referring Provider Clinical Nurse Specialist; Visit Provider Internal Medicine Gastroenterology
PROC: 0DJD8ZZ Inspection of Lower Intestinal Tract, Via Natural or Artificial Opening Endoscopic (ICD-10-PCS; CPT 45378; principal; 2024-11-24 12:30)
DX: E61.1 Iron deficiency (principal); D12.0 Benign neoplasm of cecum; D12.3 Benign neoplasm of transverse colon; K63.5 Polyp of colon; E66.01 Morbid (severe) obesity due to excess calories; Z68.41 Body mass index [BMI] 40.0-44.9, adult
CPT/HCPCS: 45385; 45381; 88305; J2003; J2704; J7120